=== PATIENT | male | born 1990 | race Caucasian/White ===

== ENCOUNTER 2017-12-04 12:17 | Emergency (ER) | payer MEDICAID ==
[~2017-12-04] VITALS: Ht 180.3 cm; Wt 67.3 kg
[2017-12-04] MEDS ORDERED: CEPH-571 PO (13:04)
[2017-12-04 13:18] VITALS: BP 145/98
== END 2017-12-04 13:21 | disposition home or self-care (01) ==
LOC: ER 12:17
DX: S61.216A Laceration without foreign body of right little finger without damage to nail, initial encounter (principal); S63.616A Unspecified sprain of right little finger, initial encounter; W23.0XXA Caught, crushed, jammed, or pinched between moving objects, initial encounter; Y93.89 Activity, other specified; Y92.89 Other specified places as the place of occurrence of the external cause; Y99.9 Unspecified external cause status
CPT/HCPCS: 29130; 73140; 99284